=== PATIENT | male | born 1965 | race Caucasian/White ===

== ENCOUNTER 2023-08-28 12:16 | Emergency (ER) | payer BC ==
[~2023-08-28] VITALS: Ht 177.8 cm; Wt 94.0 kg
[2023-08-28] MEDS ORDERED: CRES40TA PO (12:24)
[2023-08-28] MEDS: METOCLOPRAMIDE INJ 10MG/2ML VIAL IV ONE (13:46)
[2023-08-28] MEDS: diphenhydrAMINE 50MG/ML VIAL IV ONE (13:46)
[2023-08-28] MEDS: KETOROLAC 30 MG/ML 1ML VIAL IV ONE (13:46)
[2023-08-28] MEDS: NS 1,000 ML IV ONE (13:47)
[2023-08-28] MEDS: PROPARACAINE 0.5% OPHTH SOL 15ML OU ONE (13:47)
[2023-08-28 18:39] VITALS: BP 138/86; TEMP 96.9; O2SAT 99
== END 2023-08-28 18:40 | disposition home or self-care (01) ==
LOC: M ED 12:16
DX: G43.909 Migraine, unspecified, not intractable, without status migrainosus (principal); I10 Essential (primary) hypertension; E78.5 Hyperlipidemia, unspecified; E03.9 Hypothyroidism, unspecified
CPT/HCPCS: 70544; 70551; 80047; 83735; 85652; 96361; 96374; 96375; 99284; J1200; J1885; J2765